=== PATIENT | male | born 1965 | race Caucasian/White ===

== ENCOUNTER 2017-12-30 20:19 | Emergency (ER) | payer MEDICAID ==
[2017-12-30 20:30] VITALS: TEMP 98.2
--- NOTE | 2017-12-30 22:01 | EDPHY ---
H & P Time Seen by Provider: 12/30/17 21:18 HPI/ROS: CHIEF COMPLAINT: Fall, facial injury, alcohol intoxication HISTORY OF PRESENT ILLNESS: 52-year-old male presents emergency department with [employer] on an arc hold with facial injuries. Patient has a known history of alcoholism. He has been sober for quite some time. He states that he has not been drinking tonight although his sister believes that he has been drinking. He denies a headache. Denies neck or back pain. Denies chest pain or difficulty breathing. Denies injury to his upper or lower extremities. Patient believes his tetanus shot is current. REVIEW OF SYSTEMS: Constitutional: No fever, no chills. Eyes: No double or blurry vision. ENT: No sore throat. Respiratory: No cough, no shortness of breath. Cardiac: No chest pain. Gastrointestinal: No abdominal pain, vomiting or diarrhea. Genitourinary: No dysuria. Musculoskeletal: No neck or back pain. Skin: Facial lacerations. No rashes. Neurological: No headache. Past Medical/Surgical History: Alcoholism Social History: From [place] Smoking Status: Never smoked Physical Exam: General Appearance: Alert, no distress. Smells of alcohol. Slurring his words. Sister at bedside. Eyes: Pupils equal and round. Extraocular motions are all intact. ENT: Mouth: Mucous membranes moist. Respiratory: No wheezing, rhonchi, or rales, lungs are clear to auscultation. Cardiovascular: Regular rate and rhythm. Gastrointestinal: Abdomen is soft and nontender, no masses, no rebound or guarding, bowel sounds normal. Neurological: Alert and oriented x 3, cranial nerves II through XII grossly intact Skin: Patient has a laceration just lateral to the left eye as well as a laceration to the lateral aspect of his cheek. Warm and dry, no rashes. Musculoskeletal: Nontender to palpate along the cervical, thoracic or lumbar spine. Neck is supple. Extremities: Full range of motion and no peripheral edema. Psychiatric: Patient is oriented X 3, there is no agitation. Constitutional: Initial Vital Signs Temperature (C) 36.8 C 12/30/17 20:20 Heart Rate 118 H 12/30/17 20:20 Respiratory Rate 20 12/30/17 20:20 Blood Pressure 160/99 H 12/30/17 20:20 O2 Sat (%) 93 12/30/17 20:20 O2 Delivery Mode Room Air Allergies/Adverse Reactions: No Known Allergies Allergy (Unverified 12/30/17 20:30) Home Medications: Medication Instructions Recorded NK [No Known Home Meds] 12/30/17 Medical Decision Making - Diagnostics Imaging Results: Imaging Impressions Cervical Spine CT 12/30/17 21:32 Impression: Negative noncontrast CT of the cervical spine for acute injury. Results called to Dr. Bairon Villanueva at 10:[address] 12/30/17 21:32 Impression: Normal noncontrast CT of the brain. Results called to Dr. Bairon Villanueva at 10:10 PM at the time of the interpretation. Imaging: Discussed imaging studies w/ pure pak machine operator Radiologist Procedures: Laceration repair #1. Verbal consent was obtained from the patient. The 2 cm laceration on the left lateral eye was anesthetized using 1% lidocaine with epinephrine. The wound was irrigated with saline, draped and explored to its base with a gloved finger. There were no deep structures involved. The wound was repaired with 6 0 Prolene, 6 sutures. The wound repair was simple. The procedure was performed by myself. Laceration repair #2. Verbal consent was obtained from the patient. The 2.5 cm irregular laceration on the left cheek was anesthetized using 1% lidocaine with epinephrine. The wound was irrigated with saline, draped and explored to its base with a gloved finger. There were no deep structures involved. The wound was repaired with 6 0 Prolene, 6 sutures. The wound repair was complex. The procedure was performed by myself. ED Course/Re-evaluation: 52-year-old male presents to the emergency department with facial lacerations after he apparently fell. He smells strongly of alcohol although the patient denies alcohol. He is refusing an alcohol breath test. The sister at bedside states that he is an alcoholic and he is in recovery. The wound was repaired, see procedure note. CT imaging of the head and cervical spine were negative for intracranial abnormalities. The patient is on an arc hold however his sister who is at bedside is sober and wishes to take him home to her house. Patient was given closed-head injury precautions. Differential Diagnosis: Head injury including but not limited to concussion, skull fracture, intraparenchymal contusion, subarachnoid, subdural and epidural hematoma. Altered mental status including but not limited to hypoglycemia, infectious process, electrolyte abnormality, head injury and intoxicants. Departure - Departure Disposition: Home, Routine, Self-Care Clinical Impression: Face lacerations Qualifiers: Encounter type: initial encounter Qualified Code(s): S01.81XA - Laceration without foreign body of other part of head, initial encounter Condition: Good Instructions: Laceration (ED), Care For Your Stitches (ED), Acute Wounds (ED), Head Injury (ED) Additional Instructions: Wound Care Follow-Up: Removal of sutures in 5 days. Suture removal is complimentary in uncomplicated cases. Infection or abnormal findings would require reevaluation by the MD. In that case, you may be billed. Return to the emergency department if he developed headache, vomiting, altered mental status, or if you feel worse in any way. 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
[2017-12-30 23:14] VITALS: BP 137/98; PULSE 122; RESP 18; O2SAT 92
== END 2017-12-30 23:11 | disposition home or self-care (01) ==
LOC: EDBD → EDUNIT#
DX: S01.412A Laceration without foreign body of left cheek and temporomandibular area, initial encounter (principal); S01.112A Laceration without foreign body of left eyelid and periocular area, initial encounter; W18.39XA Other fall on same level, initial encounter; Y93.89 Activity, other specified